=== PATIENT | male | born 1945 | race Caucasian/White ===

== ENCOUNTER → 2024-10-05 | Outpatient (CLI) | payer MEDICARE, SELFPAY ==
--- NOTE | 2024-10-05 13:31 | XR_ITS ---
Examination: Lumbar spine, 5 views Technique: Lumbar spine AP, lateral, coned lateral lower lumbar spine, bilateral obliques 5 views Exam date and time: October 05, 2024 1451 hours INDICATIONS: Lower back pain beginning one week ago FINDINGS: Lumbar dextroscoliosis 16 degrees Significant osteopenia Diffuse moderate facet arthropathy No lumbar fracture Diffuse [id number] lumbar disc narrowing, most prominent L3-L4 with prominent anterior osteophytes at this level measuring up to 24 mm No spondylolisthesis IMPRESSION: Diffuse [id number] lumbar degenerative disc disease, most prominent L3-L4
--- NOTE | 2024-10-05 13:31 | XR_ITS ---
Examination:Right hip AP, lateral, AP pelvis 3 views Technique: Hip AP lateral, AP pelvis, 3 views Exam date and time:October 05, 2024 1445 hours INDICATIONS: Right hip pain beginning one week ago. FINDINGS: Moderate osteopenia Moderate bilateral hip osteoarthritis No hip fracture or hip dislocation IMPRESSION: Moderate bilateral hip osteoarthritis Incidental note air density over the right superior inferior pubic rami, consider ultrasound or CT pelvis follow-up to exclude right inguinal hernia.
== END | disposition home or self-care (01) ==
LOC: CDIM 13:23
PROVIDERS: PCP Family Medicine; Referring Provider Internal Medicine; Visit Provider Internal Medicine
DX: M16.0 Bilateral primary osteoarthritis of hip (principal); M51.369 Other intervertebral disc degeneration, lumbar region without mention of lumbar back pain or lower extremity pain
CPT/HCPCS: 72110; 73502

== ENCOUNTER → 2024-10-26 | Outpatient (CLI) | payer MEDICARE, SELFPAY ==
--- NOTE | 2024-10-26 14:15 | XR_ITS ---
Examination: MRI lumbar spine without contrast Date and time of exam: October 26, 2024 at 1428 hours INDICATIONS: Low back pain with the right hip beginning 2 months ago Technique: Multiple MRI axial and sagittal sections lumbar spine. Sagittal T2-weighted images, TR 3500, TE 118 T1 weighted transverse sections, TR 688 T8.5, T2-weighted sagittal sections T1 weighted sagittal sections TR 621, TE 30 T2 axial sections, TR 4, 190, TE 84. 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
== END | disposition home or self-care (01) ==
LOC: SMRI 15:09
PROVIDERS: PCP Family Medicine; Referring Provider Internal Medicine; Visit Provider Internal Medicine
DX: M51.369 Other intervertebral disc degeneration, lumbar region without mention of lumbar back pain or lower extremity pain (principal); M51.379 Other intervertebral disc degeneration, lumbosacral region without mention of lumbar back pain or lower extremity pain
CPT/HCPCS: 72148

== ENCOUNTER → 2025-01-01 | Outpatient (BNVA) | payer MEDICARE, SELFPAY | END | disposition home or self-care (01) | PROVIDERS: PCP Family Medicine; Referring Provider Family Medicine; Visit Provider Urology | DX: N40.1 Benign prostatic hyperplasia with lower urinary tract symptoms (principal); N13.8 Other obstructive and reflux uropathy; R97.20 Elevated prostate specific antigen [PSA]; N40.2 Nodular prostate without lower urinary tract symptoms; I12.9 Hypertensive chronic kidney disease with stage 1 through stage 4 chronic kidney disease, or unspecified chronic kidney disease; N18.2 Chronic kidney disease, stage 2 (mild); Z86.73 Personal history of transient ischemic attack (TIA), and cerebral infarction without residual deficits; Z87.891 Personal history of nicotine dependence | CPT/HCPCS: 81003; 99212; G0463 ==

== ENCOUNTER → 2025-02-14 | Outpatient (BNVA) | payer MEDICARE, SELFPAY | END | disposition home or self-care (01) | PROVIDERS: PCP Family Medicine; Referring Provider Family Medicine; Visit Provider Urology | DX: N40.1 Benign prostatic hyperplasia with lower urinary tract symptoms (principal); R39.12 Poor urinary stream; I10 Essential (primary) hypertension; Z86.73 Personal history of transient ischemic attack (TIA), and cerebral infarction without residual deficits | CPT/HCPCS: 51741; 51798 ==

== ENCOUNTER → 2025-02-26 | Outpatient (BNVA) | payer MEDICARE, SELFPAY | END | disposition home or self-care (01) | PROVIDERS: PCP Family Medicine; Referring Provider Family Medicine; Visit Provider Urology | DX: C61 Malignant neoplasm of prostate (principal); N40.1 Benign prostatic hyperplasia with lower urinary tract symptoms; N13.8 Other obstructive and reflux uropathy; I10 Essential (primary) hypertension; Z87.891 Personal history of nicotine dependence | CPT/HCPCS: 55700; 76942; 81003; 96372; A4649; J1580; J3490; A9270 ==

== ENCOUNTER → 2025-03-12 | Outpatient (BNVA) | payer MEDICARE, SELFPAY | END | disposition home or self-care (01) | PROVIDERS: PCP Family Medicine; Referring Provider Family Medicine; Visit Provider Urology | DX: N40.1 Benign prostatic hyperplasia with lower urinary tract symptoms (principal); N13.8 Other obstructive and reflux uropathy; C61 Malignant neoplasm of prostate; I12.9 Hypertensive chronic kidney disease with stage 1 through stage 4 chronic kidney disease, or unspecified chronic kidney disease; N18.2 Chronic kidney disease, stage 2 (mild); Z86.73 Personal history of transient ischemic attack (TIA), and cerebral infarction without residual deficits; Z87.891 Personal history of nicotine dependence | CPT/HCPCS: 81003; 99212; G0463 ==

== ENCOUNTER → 2025-04-15 | Outpatient (BNVA) | payer MEDICARE, SELFPAY | END | disposition home or self-care (01) | PROVIDERS: PCP Family Medicine; Referring Provider Family Medicine; Visit Provider Urology | DX: N32.89 Other specified disorders of bladder (principal); N40.1 Benign prostatic hyperplasia with lower urinary tract symptoms; N13.8 Other obstructive and reflux uropathy; C61 Malignant neoplasm of prostate; I10 Essential (primary) hypertension; Z86.73 Personal history of transient ischemic attack (TIA), and cerebral infarction without residual deficits; Z87.891 Personal history of nicotine dependence | CPT/HCPCS: 52000; 81003; 96372; A4217; A4649; C1894; J1580; A9270 ==

== ENCOUNTER → 2025-05-03 | Outpatient (BNVA) | payer MEDICARE, SELFPAY | END | disposition home or self-care (01) | PROVIDERS: PCP Family Medicine; Referring Provider Family Medicine; Visit Provider Urology | DX: N40.1 Benign prostatic hyperplasia with lower urinary tract symptoms (principal); C61 Malignant neoplasm of prostate; R39.14 Feeling of incomplete bladder emptying; R35.1 Nocturia; N39.43 Post-void dribbling; I12.9 Hypertensive chronic kidney disease with stage 1 through stage 4 chronic kidney disease, or unspecified chronic kidney disease; N18.30 Chronic kidney disease, stage 3 unspecified; Z86.73 Personal history of transient ischemic attack (TIA), and cerebral infarction without residual deficits | CPT/HCPCS: 99212; G0463 ==

== ENCOUNTER 2025-06-03 09:02 | Emergency (ER) | payer MEDICARE, SELFPAY ==
--- NOTE | 2025-06-03 09:10 | EKG_ITS ---
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
[2025-06-03 09:16] VITALS: BP 172/116; PULSE 68; RESP 24; TEMP 36.6; O2SAT 98
--- NOTE | 2025-06-03 09:32 | PD.EDRME ---
Rapid Medical Screening Exam RME Arrival date/time: 06/03/25 09:02 79-year-old male with a history of hypertension presents to the emergency room with a chief complaint of dizziness, nausea, lightheadedness x 1 day I have greeted and performed a focused initial assessment of this patient. A comprehensive ED assessment and evaluation of the patient, analysis of all test results, and completion of the medical decision making process will be conducted by additional ED providers. Chief Complaint: Dizziness Time Seen by Provider: 06/03/25 09:10 Vital signs: Vital Signs Temperature 98 F 06/03/25 09:16 Pulse Rate 68 06/03/25 09:16 Respiratory Rate 24 H 06/03/25 09:16 Blood Pressure 172/116 H 06/03/25 09:16 Pulse Oximetry (%) 98 06/03/25 09:16 Oxygen Delivery Method Room Air 06/03/25 09:16 Vital signs reviewed by provider: Yes
[2025-06-03] MEDS: ONDANSETRON ODT 4 MG TABRAP PO (09:39)
[2025-06-03 10:17] LABS: Basophils # (Auto) 0.1 Thou/mm3 (0.0-0.2); Basophils % (Auto) 1 % (0-2.5); Eosinophils # (Auto) 0.1 Thou/mm3 (0.0-0.5); Eosinophils % (Auto) 1 % (0-10); Hematocrit 42.9 % (41.0-53.0); Hemoglobin 14.4 g/dL (13.5-16.0); Immature Granulocytes Auto 0.08 Thou/mm3 (0.00-0.00); Lymphocytes # (Auto) 1.3 Thou/mm3 (1.0-4.8); Lymphocytes % (Auto) 14 % (10-50); Mean Corpuscular HGB Conc 33.6 g/dl (31.0-37.0); Mean Corpuscular Hemoglobin 31.3 pg (25.0-35.0); Mean Corpuscular Volume 93 fL (80-100); Monocytes # (Auto) 0.5 Thou/mm3 (0.0-0.8); Monocytes % (Auto) 5 % (0-12); Neutrophils # (Auto) 7.9 Thou/mm3 (1.8-7.7); Neutrophils % (Auto) 80 % (37-80); Nucleated Red Blood Cell # 0.00 Thou/mm3 (0.00-0.00); Nucleated Red Blood Cell % 0 /100 WBC (0); Platelet Count 207 Thou/mm3 (140-440); RDW Standard Deviation 46.5 fL (35.1-43.9); Red Blood Count 4.60 Miln/mm3 (4.50-5.90); White Blood Count 9.9 Thou/mm3 (3.8-10.6)
[2025-06-03 10:33] LABS: INR 1.0 (0.9-1.3); Partial Thromboplastin Time 23.9 Seconds (22.0-36.0); Prothrombin Time 11.4 Seconds (9.0-12.2)
[2025-06-03 10:34] LABS: B-Type Natriuretic Peptide 120 pg/mL (0-100)
[2025-06-03 10:37] LABS: Alanine Aminotransferase 13 U/L (10-49); Albumin, Serum 4.3 gm/dL (3.4-4.8); Albumin/Globulin Ratio 1.6 (1.2-2.2); Alkaline Phosphatase 71 U/L (46-116); Anion Gap 11 (7-16); Aspartate Amino Transferase 18 U/L (0-34); BUN/Creatinine Ratio 10 Ratio (12-20); Bilirubin,Total 1.1 mg/dL (0.3-1.2); Blood Urea Nitrogen 16 mg/dL (9-23); Calcium 9.4 mg/dL (8.3-10.6); Calcium (Corrected) 9.4 mg/dL (8.5-10.1); Carbon Dioxide 23.6 mMol/L (20.0-31.0); Chloride 106 mMol/L (98-107); Creatinine (Component) 1.6 mg/dL (0.6-1.3); Globulin 2.7 gm/dL (2.3-3.5); Glucose 162 mg/dL (74-106); Magnesium 2.0 mg/dL (1.6-2.6); Osmolality,Calculated 286 (275-295); Potassium 3.9 mMol/L (3.4-5.1); Sodium 141 mMol/L (136-145); Total Protein 7.0 gm/dL (5.7-8.2); Troponin I < 0.020 ng/mL (0.0-0.045); eGFR 43 See Note
--- NOTE | 2025-06-03 13:59 | EDNOTE_ITS ---
ED Dizzyness RME/HPI General Chief Complaint: Dizziness Stated Complaint: Dizzy, vomiting Time Seen by Provider: 06/03/25 09:10 Arrival date/time: 06/03/25 09:02 RME / HPI RME / HPI Narrative: 06/03/25 09:02 79-year-old male with a history of hypertension presents to the emergency room with a chief complaint of dizziness, nausea, lightheadedness x 1 day I have greeted and performed a focused initial assessment of this patient. A comprehensive ED assessment and evaluation of the patient, analysis of all test results, and completion of the medical decision making process will be conducted by additional ED providers. DR. SANCHEZ MAIN ED EVALUATION 79 year old male with history of hypertension, CVA in 2013, BPH presents to the ED for evaluation of dizziness, described as room spinning sensation, beginning yesterday. Accompanied by nausea and a mild diffuse headache. Reportedly had experienced similar dizziness twice before and evaluated here where he was diagnosed with Vertigo. States this morning he took half of a 25mg Meclizine and on my evaluation at 13:35, the patient states his dizziness has improved. No other associated symptoms reported. Related Data Home Medications ?Medication ?Instructions ?Recorded ?Confirmed lisinopril 40 mg tablet 40 mg PO QDAY 01/01/2505/03 Previous Rx's ?Medication ?Instructions ?Recorded apixaban 2.5 mg tablet (Eliquis) 2.5 mg PO BID #60 tab s 06/03/25 Allergies Allergy/AdvReac Type Severity Reaction Status Date / Time amoxicillin Allergy Mild ANXIETY Verified 06/03/25 09:07 clindamycin Allergy Mild Nightmare Verified 06/03/25 09:07 erythromycin base Allergy Nausea Verified 06/03/25 09:07 sulfamethoxazole (From Allergy Hallucinati Verified 06/03/25 09:07 Bactrim) ng trimethoprim (From Bactrim) Allergy Hallucinati Verified 06/03/25 09:07 ng Review of Systems Review of Systems Systems Reviewed: All systems reviewed, normal except as documented Past Medical History Past Medical History NEUROLOGIC: Positive Cerebrovascular Accident (lost vision, right peripheral, left inner eye) CARDIAC: Positive Cardiac Disorders and Hypertension GENITOURINARY: Positive Genitourinary Disorders and Benign Prostatic Hyperplasia ENT: Positive Cataracts 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 Abd: Soft, NT, NT, no HSM noted to palpation Extremities: No deformities, no edema noted Neuro: AAOx3, CN 2-12 GIBL, no acute neuro deficit noted. Normal gait. Skin: Warm, dry, intact Course Course Course Narrative: 1404h: Discussed with patient previous EKG results in June of last year which showed atrial fibrillation. Discussed risk factors for stroke with patient and the logic for prescribing Eliquis. Will give prescription for Eliquis for home. Patient will f/u with Dr. De La Torre. To take meclizine as needed for the positional vertigo which has resolved completely at this time. Stable for discharge. Quality Measures none Orders Category Date Time Status Bedside COVID-19 Antigen Test NOW Care 06/03/25 09:48 Completed Bedside Influenza A&B Antigen Test NOW Care 06/03/25 09:48 Completed EKG (ED ONLY) *Do not use* NOW Care 06/03/25 09:10 Completed EKG (ED Only) Stat Exams 06/03/25 09:10 Draft B-Type Natriuretic Peptide Stat Lab 06/03/25 09:52 Completed CBC Stat Lab 06/03/25 09:52 Completed Comprehensive Metabolic Panel Stat Lab 06/03/25 09:52 Completed Magnesium Stat Lab 06/03/25 09:52 Completed Partial Thromboplastin Time Stat Lab 06/03/25 09:52 Completed Prothrombin Time with INR Stat Lab 06/03/25 09:52 Completed Troponin I Stat Lab 06/03/25 09:52 Completed Acetaminophen Tab [Tylenol Tab] Med 06/03/25 14:06 Discontinued 975 mg PO X1 ONE Ondansetron Odt [Zofran Odt] Med 06/03/25 09:32 Discontinued 4 mg PO X1 ONE Vital Signs Vital signs: Vital Signs Temperature 98 F 06/03/25 09:16 Pulse Rate 68 06/03/25 09:16 Respiratory Rate 24 H 06/03/25 09:16 Blood Pressure 172/116 H 06/03/25 09:16 Pulse Oximetry (%) 98 06/03/25 09:16 Oxygen Delivery Method Room Air 06/03/25 09:16 Pulse ox is 98% on room air which is adequate. Dizziness MDM Narrative MDM Narrative:: Olive Rankin am scribing for and in the presence of Dr. Sanchez. Patient data External records reviewed:: [facility] previous records (I reviewed ED visit on 06/29/2024 ) Clinical information provided by:: patient Social determinants that could affect healthcare access:: none Patient has the following chronic illnesses:: hypertension, CVA in 2014, BPH, vertigo How is presenting disease/condition affected by chronic disease/condition?: exacerbated by Evaluation data The following diagnostics were reviewed and interpreted by me:: lab results and EKG tracing(s) (06/03/2025 @ 09:17. Atrial fibrillation, rate 68, no STEMI. ) Lab and/or radiology exams considered but not ordered:: None Interpretation Summary: As noted above Medications / Prescriptions Medications or Prescriptions considered but not ordered:: None Medication administrations:: Medication Administration History Discontinued Medications Acetaminophen (Acetaminophen 325 Mg Tablet) 975 mg PO X1 ONE Stop: 06/03/25 14:07 Last Admin: 06/03/25 14:12 Dose: 975 mg Documented By: TOM Ondansetron HCl (Ondansetron Odt 4 Mg Tabrap) 4 mg PO X1 ONE; Protocol Stop: 06/03/25 09:33 Last Admin: 06/03/25 09:39 Dose: 4 mg Documented By: See above Consultations Consultation(s) initiated? (list below): No Diagnosis Most likely diagnosis given after review of the tests above:: Benign paroxysmal positional vertigo Paroxysmal atrial fibrillation Admission Indicated Admission indicated?: not indicated Admission Request Was there a request for admission?: No Disposition Plan Disposition Plan: Discharge Discharge Attestation Discharge Attestation: The patient and all family members were given an opportunity to ask questions and understood the discharge instructions. Discharge instructions specifically effects, indications for sooner follow up or return to the emergency department, and the expected course of current diagnosis. Patient condition: Stable Discharge Plan Plan Patient Disposition: HOME (Self Care) Patient condition on transfer: Stable Prescriptions/Referrals Prescriptions/Med Rec: New Eliquis 2.5 mg tablet 2.5 mg PO BID Qty: 60 0RF No Action lisinopril 40 mg tablet 40 mg PO QDAY Referrals: José Miguel De La Torre MD [Physician] - In 1 week Charlie Hodgson MD [Primary Care Provider] - In 1 week Problem List Clinical Impression: Benign paroxysmal positional vertigo, PAF (paroxysmal atrial fibrillation) Patient/Caregiver Discharge Instructions Education Materials: Apixaban oral tablets, AFL/Afib, Anatomy of the Inner Ear, Eating Heart-Healthy Foods, BPPV Print Language: Northern Irish Stand Alone Forms: Sofie Award Info., Patient Portal Info Letter
[2025-06-03 14:08] VITALS: PULSE 59; RESP 19; TEMP 36.8; O2SAT 95
[2025-06-03] MEDS: ACETAMINOPHEN 325 MG TABLET 975 MG PO (14:12)
== END 2025-06-03 14:25 | disposition home or self-care (01) ==
PROVIDERS: Nurse Practitioner Family; Emergency Provider Family Medicine; PCP Family Medicine
DX: I48.0 Paroxysmal atrial fibrillation (principal); H81.10 Benign paroxysmal vertigo, unspecified ear; I10 Essential (primary) hypertension; N40.0 Benign prostatic hyperplasia without lower urinary tract symptoms; Z86.73 Personal history of transient ischemic attack (TIA), and cerebral infarction without residual deficits; Z87.891 Personal history of nicotine dependence; Z88.0 Allergy status to penicillin; Z88.1 Allergy status to other antibiotic agents; Z79.899 Other long term (current) drug therapy
CPT/HCPCS: 36415; 80053; 80307; 81001; 83735; 83880; 84484; 85025; 85610; 85730; 93005; 99284; Q0162; A9270

== ENCOUNTER 2025-07-27 08:41 | Emergency (ER) | payer MEDICARE, SELFPAY ==
[2025-07-27 08:46] VITALS: BP 138/86; PULSE 65; RESP 19; TEMP 36.4; O2SAT 95; BMI 28.5
--- NOTE | 2025-07-27 09:05 | PD.EDMALE ---
ED Male Genitalurinary RME/HPI General Chief complaint: Urogenital-Male Stated complaint: Trouble urinating, recent prostate bx oct. 1st Time Seen by Provider: 07/27/25 08:44 Arrival date/time: 07/27/25 08:41 This is a 80yo male with a history of BPH presents to the ED for a chief complaint of urinary retention. Patient had a biopsy done 07/24/25 at [facility] and has not been able to urinate since. Patient had a urinary catheter placed 2 days ago and yesterday it was removed. Patient states he has not been able to fully empty his bladder since the removal of the catheter. Patient denies lower abdominal pain. Patient denies any N/V, back pain, fever, or any other associated symptoms. Related Data Home Medications ?Medication ?Instructions ?Recorded ?Confirmed lisinopril 40 mg tablet 40 mg PO QDAY 01/01/25 08/02/25 finasteride 5 mg tablet 5 mg PO QDAY 08/02/25 08/02/25 tamsulosin 0.4 mg capsule 0.8 mg PO QHS 08/02/25 08/02/25 Previous Rx's ?Medication ?Instructions ?Recorded apixaban 2.5 mg tablet (Eliquis) 2.5 mg PO BID #60 tabs 06/03/25 Allergies Allergy/AdvReac Type Severity Reaction Status Date / Time amoxicillin Allergy Mild ANXIETY Verified 08/02/25 11:21 clindamycin Allergy Mild Nightmare Verified 08/02/25 11:21 erythromycin base Allergy Nausea Verified 08/02/25 11:21 sulfamethoxazole (From Allergy Hallucinati Verified 08/02/25 11:21 Bactrim) ng trimethoprim (From Bactrim) Allergy Hallucinati Verified 08/02/25 11:21 ng Review of Systems Review of Systems Systems Reviewed: All systems reviewed, normal except as documented Past Medical History Past Medical History NEUROLOGIC: Positive Cerebrovascular Accident (lost vision, right peripheral, left inner eye) CARDIAC: Positive Cardiac Disorders and Hypertension GENITOURINARY: Positive Genitourinary Disorders and Benign Prostatic Hyperplasia ENT: Positive Cataracts 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 GENERAL APPEARANCE: Alert and interactive, follows commands, no acute distress HEAD AND FACE: Non-traumatic. ENT: PERRL, conjuctiva pink and clear, eyelid no trauma, Mucous membrane moist. NECK: Supple, nontender, no nuchal rigidity. CHEST: No tenderness, no crepitus, no paradoxical movement, no retractions. LUNGS: breathing even and unlabored HEART: Regular rate, cap refill less than 2 seconds ABDOMEN: Soft, nondistended, no guarding, nontender NEUROLOGICAL: Gross motor function intact sensory function intact, Appropriate for age. MUSCULOSKELETAL: low back nontender, full range of motion. EXTREMITIES: No redness no swelling no skin breakdown on bilateral foot and leg. Distal neurovascular status intact bilateral foot SKIN: Color pink, dry Course Quality Measures none Orders Category Date Time Status Santos [Urinary Catheter] QS Care 07/27/25 09:06 Completed Vital Signs Vital signs: Vital Signs Temperature 97.6 F 07/27/25 08:46 Pulse Rate 65 07/27/25 08:46 Respiratory Rate 19 07/27/25 08:46 Blood Pressure 138/86 H 07/27/25 08:46 Pulse Oximetry (%) 95 07/27/25 08:46 Oxygen Delivery Method Room Air 07/27/25 08:46 Urogenital - Male MDM Narrative MDM Narrative:: I spoke to patient at length. Patient still on antibiotics. Patient states that he does not await for urine sample results. Patient states he feels comfortable going home. Patient bladder was full and it was emptied here and but he was put in a leg bag. Patient states that he will follow-up with Dr. Mendoza urologcl patient told to come back to the emergency room symptoms change or worsen. Patient verbalized with plan of care and daughter is with patient.. Addieon dictation: Although this document has been carefully reviewed, there may still be some phonetic and other typographical errors. These errors are purely grammatical due to imperfections in the software program and should not be construed in any way to compromise the substance of the patient's medical care during this visit. Patient data External records reviewed:: [facility] previous records Clinical information provided by:: patient Social determinants that could affect healthcare access:: none Patient has the following chronic illnesses:: See HPI How is presenting disease/condition affected by chronic disease/condition?: uneffected by Evaluation data The following diagnostics were reviewed and interpreted by me:: lab results Lab and/or radiology exams considered but not ordered:: none Interpretation Summary: see note Medications / Prescriptions Medications or Prescriptions considered but not ordered:: none Medication administrations:: see note Consultations Consultation(s) initiated? (list below): No Diagnosis Urogenital Male Differential Diagnosis: urinary tract infection, prostatitis and acute retention of urine Most likely diagnosis given after review of the tests above:: Enlarged prostate urinary retention. Admission Indicated Admission indicated?: not indicated Admission Request Was there a request for admission?: No Disposition Plan Disposition Plan: Discharge Discharge Attestation Discharge Attestation: The patient and all family members were given an opportunity to ask questions and understood the discharge instructions. Discharge instructions specifically effects, indications for sooner follow up or return to the emergency department, and the expected course of current diagnosis. Patient condition: Stable Discharge Plan Plan Patient Disposition: HOME (Self Care) Patient condition on transfer: Stable Prescriptions/Referrals Prescriptions/Med Rec: No Action lisinopril 40 mg tablet 40 mg PO QDAY tamsulosin 0.4 mg capsule 0.8 mg PO QHS finasteride 5 mg tablet 5 mg PO QDAY Eliquis 2.5 mg tablet 2.5 mg PO BID Qty: 60 0RF Referrals: No Primary/Family,Physician [Referring Provider] - In 1 week Problem List Clinical Impression: Encounter for Santos catheter replacement, Acute urinary retention Patient/Caregiver Discharge Instructions Discharge Activity: activity as tolerated Education Materials: ED Santos Catheter, Care, ED Urinary Retention, Male Additional Instructions: Follow up with primary provider in 1-2 days. Come back to ED if symptoms change or worsen Print Language: Maltese Stand Alone Forms: Sofie Award Info., Patient Portal Info Letter PA/[employer] Supervising Physician PA/[employer] Supervising Physician: sharon
== END 2025-07-27 09:43 | disposition home or self-care (01) ==
PROVIDERS: Emergency Provider Emergency Medicine; PCP Family Medicine
DX: R33.9 Retention of urine, unspecified (principal); I10 Essential (primary) hypertension; H54.8 Legal blindness, as defined in USA; Z87.891 Personal history of nicotine dependence; I69.398 Other sequelae of cerebral infarction
CPT/HCPCS: 51702; 81001; 87086; 99284; A4314

== ENCOUNTER → 2025-08-02 | Outpatient (BNVA) | payer MEDICARE, SELFPAY | END | disposition home or self-care (01) | PROVIDERS: PCP Family Medicine; Referring Provider Family Medicine; Visit Provider Urology | DX: R33.9 Retention of urine, unspecified (principal); R97.20 Elevated prostate specific antigen [PSA]; Z98.890 Other specified postprocedural states; E66.9 Obesity, unspecified; Z68.25 Body mass index [BMI] 25.0-25.9, adult; I10 Essential (primary) hypertension | CPT/HCPCS: 99212; G0463 ==